=== PATIENT | female | born 1950 | race Caucasian/White ===

== ENCOUNTER 2023-11-01 12:38 | Observation (INO) ==
[2023-11-01 13:10] LABS: ABS Basophils 0.1 10^3/uL (0.0-0.1); ABS Eosinophils 0.1 10^3/uL (0.0-0.5); ABS Lymphocytes 1.8 10^3/uL (1.0-4.8); ABS Monocytes 0.5 10^3/uL (0.0-0.9); ABS Neutrophils 3.9 10^3/uL (1.5-7.6); Eosinophil % 2.3 %; Hematocrit 38.3 % (35-45); Lymphocyte % 27.4 %; Mean Corpuscular Hemoglobin 31.6 pg (27-33); Mean Corpuscular Hgb Conc 33.8 g/dL (31-36); Mean Corpuscular Volume 93.4 fL (80-97); Mean Platelet Volume 8.6 fL (7.5-11.2); Platelet Count 175 10^3/uL (150-450); Red Cell Distribution Width 13.7 % (12-17); White Blood Count 6.4 10^3/uL (3.8-11.8)
[2023-11-01 13:18] LABS: INR 0.96 (0.85-1.14)
[2023-11-01 13:33] LABS: High Sens Troponin Baseline 4 pg/mL (<15)
[2023-11-01 14:24] LABS: High Sensitivity Troponin 1 Hr 4 pg/mL (<15)
[2023-11-01 14:28] LABS: ALT 21 U/L (7-52); Albumin 4.2 g/dL (3.2-5.2); Albumin/Globulin Ratio 1.6 (1-3); Alkaline Phosphatase 64 U/L (35-149); Anion Gap 5 mmol/L (2-16); Blood Urea Nitrogen 27 mg/dL (6-24); CO2 Carbon Dioxide 23 mmol/L (22-32); Calcium 8.7 mg/dL (8.6-10.3); Chloride 106 mmol/L (101-111); Creatinine, Serum 1.04 mg/dL (0.51-0.95); Globulin 2.6 g/dL (2-4); Glucose 81 mg/dL (70-100); Sodium 134 mmol/L (135-145); Total Bilirubin 0.5 mg/dL (0.2-1.0); Total Protein 6.8 g/dL (6.4-8.9); eGFR CKD-EPI 56.8 (>60)
[2023-11-01] MEDS ORDERED: Senna TAB 8.6 mg TAB PO PRN (18:35)
[2023-11-01] MEDS: Enoxaparin 40 MG/0.4 ML SYR SUBCUT SCH (20:48)
[2023-11-02 02:39] LABS: Potassium Redraw 3.8 mmol/L (3.5-5.0)
[2023-11-02 07:49] LABS: ABS Basophils 0.1 10^3/uL (0.0-0.1); ABS Eosinophils 0.2 10^3/uL (0.0-0.5); ABS Lymphocytes 1.3 10^3/uL (1.0-4.8); ABS Monocytes 0.5 10^3/uL (0.0-0.9); ABS Neutrophils 2.6 10^3/uL (1.5-7.6); Eosinophil % 4.5 %; Hematocrit 38.5 % (35-45); Hemoglobin 13.2 g/dL (11.5-14.3); Mean Corpuscular Hemoglobin 31.9 pg (27-33); Mean Corpuscular Hgb Conc 34.2 g/dL (31-36); Mean Platelet Volume 8.6 fL (7.5-11.2); Nucleated Red Blood Cells % 0.1 %/100WBC (0.0-0.8); Platelet Count 166 10^3/uL (150-450); Red Blood Count 4.14 10^6/uL (3.63-4.92); Red Cell Distribution Width 13.6 % (12-17); White Blood Count 4.7 10^3/uL (3.8-11.8)
[2023-11-02 08:19] LABS: Calcium 9.4 mg/dL (8.6-10.3); Creatinine, Serum 0.91 mg/dL (0.51-0.95); HDL Cholesterol 47.7 mg/dL; Magnesium 1.9 mg/dL (1.9-2.7); Potassium 4.7 mmol/L (3.5-5.0); eGFR CKD-EPI 66.6 (>60)
[2023-11-02] MEDS ORDERED: Aminophylline 25 MG/ML VIAL ONE (08:42)
[2023-11-02] MEDS ORDERED: Regadenoson 0.4 MG/5 ML SYRINGE ONE (08:42)
[2023-11-02 10:20] VITALS: BP 157/87
== END 2023-11-02 13:40 | disposition home or self-care (01) ==
LOC: EDHOLD 12:38 → ED 12:38 → MEDTELE 18:35
PROVIDERS: ADMIT Student in an Organized Health Care Education/Training Program; ATTEND Student in an Organized Health Care Education/Training Program